=== PATIENT | male | born 1960 | race Caucasian/White ===

== ENCOUNTER 2018-09-30 09:08 | Emergency (ER) | payer MEDICAID ==
[~2018-09-30] VITALS: Ht 182.9 cm; Wt 90.7 kg
[2018-09-30] MEDS ORDERED: KETOROLAC TROMETH 60MG/2ML VIAL IM ONE (09:30)
[2018-09-30] MEDS ORDERED: SUMAtriptan SUCCINATE 6 MG/0.5 ML VL SC ONE (09:30)
[2018-09-30 10:28] VITALS: BP 138/74
== END 2018-09-30 10:41 | disposition home or self-care (01) ==
LOC: ER 09:13
DX: R51 Headache (principal); I10 Essential (primary) hypertension; F17.210 Nicotine dependence, cigarettes, uncomplicated
CPT/HCPCS: 70450; 96372; 99284; J1885; J3030

== ENCOUNTER 2023-09-07 13:40 | Emergency (ER) | payer MEDICAID ==
[~2023-09-07] VITALS: Ht 188 cm; Wt 84.0 kg
[2023-09-07 14:04] VITALS: BP 131/78; PULSE 97; RESP 18; O2SAT 96
== END 2023-09-07 19:30 | disposition left against medical advice (07) ==
LOC: ER 13:40
DX: M25.511 Pain in right shoulder (principal); M54.2 Cervicalgia; Z53.21 Procedure and treatment not carried out due to patient leaving prior to being seen by health care provider